=== PATIENT | female | born 1995 | race Caucasian/White ===

== ENCOUNTER 2016-12-10 14:38 | Outpatient (CLI) | payer MEDICAID ==
[~2016-12-10] VITALS: Ht 165.1 cm; Wt 58.8 kg
[2016-12-10 14:44] VITALS: Ht 165.1 cm; Wt 58.8 kg
[2016-12-10 14:45] VITALS: BP 113/68
[2016-12-10] MEDS ORDERED: PREN1TAB17 PO (14:52)
[2016-12-10 16:27] LABS: ADD SCAN DIFF NO
[2016-12-10 16:29] LABS: BASOPHILS % 0.3 % (0.0-2.0); EOSINOPHILS # 0.1 10^3/ul (0.0-0.5); EOSINOPHILS % 1.3 % (0.0-7.0); HEMATOCRIT 32.7 % (37.0-47.0); HEMOGLOBIN 10.9 g/dl (12.0-16.0); LYMPHOCYTES # 1.4 10^3/ul (0.8-2.9); LYMPHOCYTES % 22.2 % (15.0-51.0); MEAN CORPUSCULAR HEMOGLOBIN 31.1 pg (29.0-33.0); MEAN CORPUSCULAR HGB CONC 33.3 g/dl (32.0-37.0); MEAN CORPUSCULAR VOLUME 93.4 fl (82.0-101.0); MEAN PLATELET VOLUME 10.4 fl (7.4-10.4); MONOCYTE # 0.4 10^3/ul (0.3-0.9); NEUTROPHIL # 4.3 10^3/ul (1.6-7.5); NEUTROPHILS % 69.7 % (39.0-77.0); PLATELET COUNT 185 10^3/UL (140-415); RED CELL DISTRIBUTION WIDTH 13.4 % (11.5-14.5); WHITE BLOOD COUNT 6.2 10^3/ul (4.8-10.8)
--- NOTE | 2016-12-10 17:21 | RADRPT ---
PROCEDURE: US evaluation of position. CLINICAL INDICATION: Vaginal bleeding. Uncertain position. TECHNIQUE: Multiple sonographic images of the gravid uterus were obtained utilizing nova-scale socrates ging. Sagittal and transverse images were obtained. The images were reviewed on a PACS workstation . The position was determined. COMPARISON: No prior studies are available for comparison. FINDINGS: There is a single live intrauterine . heart rate is 157 beats per minute. Position is footling breech and placenta is anterior grade 0 with no abruption or previa. There is no placenta previa or abruption. IMPRESSION: 1. position is footling breech. RPTAT: QQ .Otilio Vickers MD, Date Time Electronically viewed and signed by .Otilio Vickers MD, on 12/10/2016 17:21 .R/
--- NOTE | 2016-12-10 18:01 | TRIAGE ---
OB Triage Datetime Report Generated by CPN: 12/10/2016 18:01 Datetime: 12/10/2016 17:30 Stage of : OB Triage Labor Evaluation Frequency: 0 Monitor Mode: External Pattern: Normal: <= 5 Contractions in 10 Minutes Resting Tone Norris: Relaxed Heart Rate FHR Baseline Rate: 145 Monitor Mode: External US Variability: Moderate 6-25 bpm Accelerations: 15X15 Decelerations: None Category: Category I Pain Presence: None/Denies Pain Type: N/A Datetime: 12/10/2016 16:21 Labor Evaluation Frequency: 0 Monitor Mode: External Pattern: Normal: <= 5 Contractions in 10 Minutes Resting Tone Norris: Relaxed Monitor Mode: External US Variability: Moderate 6-25 bpm Accelerations: 15X15 Decelerations: None Category: Category I Pain Presence: None/Denies Pain Type: N/A Vaginal Exam Membrane Status: Intact Datetime: 12/10/2016 15:00 Stage of : OB Triage Assessment Type: Triage Maternal Assessment Level of Consciousness: Fully Conscious DTR's/Clonus: DTRs 2+; No Clonus Headache: Denies Blurred Vision: No Respiratory Effort: Unlabored; Regular Rhythm; Equal Expansion Breath Sounds, Left: Clear and Equal Breath Sounds, Right: Clear and Equal Nausea/Vomiting: Denies RUQ Epigastric Pain: Denies Lower Extremities Edema: None Degree: None Upper Extremities Edema: None Facial Edema: None Temperature Route: Oral Fall Risk Assessment History of Falling: (0) No Secondary Diagnosis: (0) No Ambulatory Aid: (0) Bedrest/Nurse Assist IV Therapy: (0) No Gait: (0) Normal/Bedrest/Immobile Mental Status: (0) Oriented to Own Ability Fall Score: 0 Fall Risk Score Definition: No Risk: No action required Labor Evaluation Frequency: 0 Monitor Mode: External Heart Rate FHR Baseline Rate: 135 Monitor Mode: External US Variability: Moderate 6-25 bpm Accelerations: 15X15 Decelerations: None Category: Category I Pain Assessment Pain Scale: 3 Pain Presence: Intermittent Pain Type: Cramping Pain Location: Abdomen Datetime: 12/10/2016 14:59 Time of Arrival: 12/10/2016 14:29 EGA: 22.5 Arrived By: Ambulatory Arrived From: Home Chief Complaint: C/O SPOTTING ABDOMINAL PAIN Movement: Present Rupture of Membranes: Denies Vaginal Bleeding: Scant Vaginal Discharge: Denies Recent Sexual Intercouse: Denies Abdominal Trauma: Not Applicable Patient Complaints: Cramping Time Provider Notified: 12/10/2016 15:38 Provider Notified: DR. DAY Initial Plan: [id number], CALL
--- NOTE | 2016-12-10 18:22 | CONS ---
Date/Time of Note Date/Time of Note DATE: 12/10/16 TIME: 18:13 Consultation Date/Type/Reason Admit Date/Time December 10, 2016 OB triage consult Reason for Consultation This patient is a a 21 years old 2 para 1 with estimated date of confinement of April 10, 2017, which makes her 22 weeks and 5 days at this time. She came to triage complaining of vaginal spotting and abdominal pain for 2 days On examination her general vital signs are within normal limits with blood pressure of 113/68, pulse rate of 81 respiration 16,, and temperature 98.5. On examination her abdomen is soft we do not feel much of a contraction. heart tone is normal Laboratory Tests Test 12/10/16 15:46 White Blood Count 6.210^3/ul Red Blood Count 3.5010^6/ul Hemoglobin 10.9g/dl Hematocrit 32.7% Mean Corpuscular Volume 93.4fl Mean Corpuscular Hemoglobin 31.1pg Mean Corpuscular Hemoglobin Concent 33.3g/dl Red Cell Distribution Width 13.4% Platelet Count 57020^3/UL Mean Platelet Volume 10.4fl Neutrophils % 69.7% Lymphocytes % 22.2% Monocytes % 6.0% Eosinophils % 1.3% Basophils % 0.3% Neutrophils # 4.310^3/ul Lymphocytes # 1.410^3/ul Monocytes # 0.410^3/ul Eosinophils # 0.110^3/ul Basophils # 0.010^3/ul Nucleated Red Blood Cells # 0.010^3/ul . Constitutional: No chills, No diaphoresis, No disoriented, No febrile, No improved, No no complaints, No other, No poor po, No requiring IVF, No requiring O2 Eyes: No discharge, No no complaints, No other, No pain, No redness, No visual change ENT: No bleeding, No congestion, No discharge, No dysphagia, No no complaints, No other, No pain, No sore throat Respiratory: No cough, No no complaints, No other, No pain, No pleuritic pain, No shortness of breath, No sputum, No wheezing Cardiovascular: No chest pain, No edema, No lightheadedness, No no complaints, No orthopenea, No other, No palpitations, No paroxysmal nocturnal dyspnea Gastrointestinal: other (No abdominal tenderness no CVA 10), No blood, No constipation, No decreased appetite, No diarrhea, No flatus, No nausea, No no complaints, No pain, No passing stool, No vomiting Genitourinary: other (Pelvic exam was not performed due to the fact that she did not have any contractions), No bleeding, No discharge, No dysuria, No flank pain, No hematuria, No no complaints Musculoskeletal: No back pain, No bone/joint pain, No neck pain, No no complaints, No other, No restricted range of motion, No swelling Skin: No bruising, No erythema, No laceration, No no complaints, No other, No pruritis, No rash, No skin lesions Neurologic: No confusion, No dizziness, No focal-weakness, No headache, No no complaints, No other, No seizure, No syncope Endocrine: No dry skin, No no complaints, No other, No polydypsia, No polyuria , No temp intolerance Additional Comments CBC exam was done and showed that she had moderate anemia with hemoglobin of 10.9 hematocrit 32.7 her platelet count was normal 185,000 On ultrasound study the report was a single live intrauterine in footling breech position, placenta was anterior no evidence of abruptio. Disposition. With these finding patient was reassured and was discharged home to be followed in her obstetricians clinic End of dictation Social History Smoking Status: Never smoker Exam/Review of Systems Vital Signs Vitals Vital Signs Date Time Temp Pulse Resp B/P Pulse Ox O2 Delivery O2 Flow Rate FiO2 12/10/16 14:45 98.5 113/68 Room Air Results Result Diagram: 12/10/16 1546 Results 24 hrs Laboratory Tests Test 12/10/16 15:46 White Blood Count 6.2 Red Blood Count 3.50 L Hemoglobin 10.9 L Hematocrit 32.7 L Mean Corpuscular Volume 93.4 Mean Corpuscular Hemoglobin 31.1 Mean Corpuscular Hemoglobin Concent 33.3 Red Cell Distribution Width 13.4 Platelet Count 185 Mean Platelet Volume 10.4 Neutrophils % 69.7 Lymphocytes % 22.2 Monocytes % 6.0 Eosinophils % 1.3 Basophils % 0.3 Neutrophils # 4.3 Lymphocytes # 1.4 Monocytes # 0.4 Eosinophils # 0.1 Basophils # 0.0 Nucleated Red Blood Cells # 0.0 LAURA DAY MD Dec 10, 2016 18:21
== END 2016-12-10 18:05 | disposition home or self-care (01) ==
LOC: EDBD 14:38 → OBT 14:38 → L-D 14:39 → OBT 18:05
DX: O20.8 Other hemorrhage in early pregnancy (principal); Z3A.22 22 weeks gestation of pregnancy
CPT/HCPCS: 76815; 85025; Z7500; G0463

== ENCOUNTER 2017-04-10 01:30 | Inpatient (IN) | payer MEDICAID ==
[~2017-04-10] VITALS: Ht 157.5 cm; Wt 64.8 kg
[~2017-04-10 01:30] MED LIST: PREN1TAB17 PO
[2017-04-10 01:53] VITALS: BP 112/80; PULSE 88; RESP 18
[2017-04-10] MEDS ORDERED: LACTATED RINGER'S 1,000 ML IV SCH (02:32)
--- NOTE | 2017-04-10 02:36 | TRIAGE ---
OB Triage Datetime Report Generated by CPN: 04/10/2017 02:36 Datetime: 04/10/2017 02:30 Stage of : OB Triage Datetime: 04/10/2017 02:10 Stage of : OB Triage Labor Evaluation Frequency: 2-3 Monitor Mode: External Quality: Moderate Pattern: Normal: <= 5 Contractions in 10 Minutes Resting Tone Negley: Relaxed Heart Rate FHR Baseline Rate: 130 Monitor Mode: External US FHR Baseline Changes: No Baseline Change Variability: Moderate 6-25 bpm Accelerations: 15X15 Decelerations: None Category: Category I Vaginal Exam Dilatation (cms): 5.0 Effacement (%): 90 Station: -2 Exam By: Corina Doran Status: Bulging Vaginal Bleeding: Scant Cervix, Consistency: Soft Cervix, Position: Midposition Presentation 'A': Cephalic Datetime: 04/10/2017 01:58 Time of Arrival: 04/10/2017 01:25 EGA: 40.6 Arrived By: Wheelchair Arrived From: Home Chief Complaint: c/o ucs and spotting. States her EDC is 04/10 but 04/04 per PNR Movement: Present Contractions: Irregular Time Contractions Began: 04/09/2017 22:30 Contractions: Q10-15 Rupture of Membranes: Denies Vaginal Bleeding: Scant Vaginal Discharge: Present Recent Sexual Intercouse: Denies Abdominal Trauma: Not Applicable Patient Complaints: Contractions Time Provider Notified: 04/10/2017 02:30 Provider Notified: Dr Muñiz Initial Plan: EFM,SVE Datetime: 04/10/2017 01:38 Stage of : OB Triage Maternal Assessment Level of Consciousness: Fully Conscious Headache: Denies Blurred Vision: No Respiratory Effort: Unlabored Nausea/Vomiting: Denies RUQ Epigastric Pain: Denies Facial Edema: None Labor Evaluation Frequency: placed Monitor Mode: External Resting Tone Negley: Relaxed Monitor Mode: External US Comments: FHT 140 Pain Assessment Pain Scale: 8 Pain Presence: Intermittent Pain Type: Contraction Pain Location: Abdomen Datetime: 12/10/2016 15:00 Fall Risk Assessment Fall Score: 0 Fall Risk Score Definition: No Risk: No action required Datetime: 12/10/2016 14:59 EGA: 23.4
--- NOTE | 2017-04-10 02:51 | HP ---
Date/Time of Note Date/Time of Note DATE: 04/10/17 TIME: 02:50 OB - History Hx of Present : 2 Para: 1 Care: Good Care Obstetrical Complications: None Medical Complications: None Past Family/Social History * Past Medical, Surgical, Family and Obstetric Histories reviewed from chart. OB Admission Exam Vital Signs Vital Signs Vital Signs Date Time Temp Pulse Resp B/P Pulse Ox O2 Delivery O2 Flow Rate FiO2 04/10/17 01:53 98.7 88 18 112/80 Room Air Physical Exam HEENT: WNL Heart: Rhythm Normal Lungs: Clear Abdomen: WNL Extremities: Normal Cervical Dilatation: 5cm Effacement: 100% Station: -2 Membranes: Intact Accelerations: Accelerations Present Decelerations: No Decelerations Varibility: Moderate Contractions on Admission: < 5 Minutes Apart OB Assessment/Plan Reason for admission: active labor Plan: Expectant Management WOODY SANTANA Apr 10, 2017 02:51
[2017-04-10] MEDS ORDERED: LIDOCAINE 1% (MPF) 30 ML INJ INJ PRN (03:00)
[2017-04-10] MEDS ORDERED: IBUPROFEN 600 MG TAB PO PRN (03:00)
[2017-04-10] MEDS ORDERED: MISOPROSTOL 200 MCG TAB PR PRN ×2 (03:00→04:30)
[2017-04-10] MEDS ORDERED: METHYLERGONOVINE 0.2 MG INJ IM PRN ×2 (03:00→04:30)
[2017-04-10] MEDS ORDERED: BUTORPHANOL 2 MG INJ IV PRN (03:00)
[2017-04-10] MEDS ORDERED: CARBOPROST 250 MCG INJ IM PRN ×2 (03:00→04:30)
[2017-04-10] MEDS ORDERED: OXYTOCIN 30 UNITS/LR 500 ML IV PRN ×2 (03:00→04:30)
[2017-04-10 03:17] LABS: BASOPHILS % 0.2 % (0.0-2.0); EOSINOPHILS # 0.1 10^3/ul (0.0-0.5); EOSINOPHILS % 0.7 % (0.0-7.0); HEMATOCRIT 31.6 % (37.0-47.0); HEMOGLOBIN 10.4 g/dl (12.0-16.0); LYMPHOCYTES # 2.3 10^3/ul (0.8-2.9); LYMPHOCYTES % 26.7 % (15.0-51.0); MEAN CORPUSCULAR HEMOGLOBIN 27.8 pg (29.0-33.0); MEAN CORPUSCULAR HGB CONC 32.9 g/dl (32.0-37.0); MEAN CORPUSCULAR VOLUME 84.5 fl (82.0-101.0); MEAN PLATELET VOLUME 12.2 fl (7.4-10.4); MONOCYTE # 0.6 10^3/ul (0.3-0.9); MONOCYTES % 6.5 % (0.0-11.0); NEUTROPHIL # 5.5 10^3/ul (1.6-7.5); NEUTROPHILS % 65.3 % (39.0-77.0); PLATELET COUNT 130 10^3/UL (140-415); RED BLOOD COUNT 3.74 10^6/ul (4.20-5.40); RED CELL DISTRIBUTION WIDTH 13.2 % (11.5-14.5); WHITE BLOOD COUNT 8.5 10^3/ul (4.8-10.8)
[2017-04-10] MEDS ORDERED: LACTATED RINGER'S 1,000 ML IV PRN (03:30)
[2017-04-10 03:33] LABS: INR 0.88; PARTIAL THROMBOPLASTIN TIME 30.7 Sec (25.0-35.0); PROTIME 11.9 Sec (12.2-14.2); PT RATIO 0.9
[2017-04-10] MEDS: OXYTOCIN 30 UNITS/LR 500 ML IV SCH ×8 (04:07→20:08)
[2017-04-10] MEDS ORDERED: LACTATED RINGER'S 1,000 ML IV* SCH (04:08)
--- NOTE | 2017-04-10 04:08 | LDN ---
Date/Time of Note Date/Time of Note DATE: 04/10/17 TIME: 04:04 Delivery Summary Placenta Delivered: Spontaneously Meconium: Light Perineal laceration: 1 Laceration repair: R. labial laceration repaired with 4-0 chromic Anesthesia type: None Estimated blood loss: 350 Sponge & Needle done & correct: Yes All needle counts correct: Yes Any foreign bodies felt in the: No Problems: Delivery Information Sex Infant Sex: female Apgars 1 Minute: 8 5 Minute: 9 Suctioning Nose & mouth suctioned at taz: Yes Umbilical Cord Umbilical cord with: 3 Vessels Cord presentations: nuchal cord Nuchal cord present X: 1 Cord Blood was obtained: Yes Mother & Baby Disposition Disposition Mom & Baby to Maternity; Good: Yes WOODY SANTANA Apr 10, 2017 04:08
[2017-04-10] MEDS ORDERED: LANOLIN 7 GM TUBE TOP PRN (04:30)
[2017-04-10] MEDS ORDERED: HYDROCODONE/APAP (5/325) TAB PO PRN ×2 (04:30)
[2017-04-10] MEDS ORDERED: DIBUCAINE 1% 30 GM OINT PR PRN (04:30)
[2017-04-10] MEDS ORDERED: WITCH HAZEL/GLYCERIN PAD PR PRN (04:30)
[2017-04-10] MEDS ORDERED: BENZOCAINE 20% 56 ML SPRAY TOP PRN (04:30)
[2017-04-10] MEDS ORDERED: CEFAZOLIN 2 GM/50 ML (PMX) 50 ML IVPB ONE (05:00)
[2017-04-10] MEDS: IBUPROFEN 600 MG TAB PO SCH ×3 (06:00→17:10)
[2017-04-10] MEDS ORDERED: FENTAnyl 50 MCG/ML VIAL ONE (06:09)
[2017-04-10] MEDS ORDERED: PROPOFOL 20 ML ONE (06:09)
[2017-04-10] MEDS ORDERED: MIDAZOLAM 1 MG/ML 2 ML INJ ONE (06:09)
--- NOTE | 2017-04-10 06:17 | RADRPT ---
PROCEDURE: US Pelvis. CLINICAL INDICATION: bleeding TECHNIQUE: Multiple sonographic images of the pelvis were obtained utilizing a transabdominal and endovaginal technique. The images were reviewed on a PACS workstation. COMPARISON: 12/10/2016 FINDINGS: The uterus is enlarged and heterogeneous , measuring 19.4 x 10.5 x 11.1 cm. The endometrial echo com plex is thickened, and heterogeneous, measuring 3.9 cm. Mild color flow is demonstrated. There is n o evidence for free fluid. The ovaries are not visualized. No adnexal mass is identified. IMPRESSION: uterus. Heterogeneous, thickened endometrium with color flow suggesting retained products of conception. Follow-up recommended. Ovaries are not visualized. Physician Linda Date Time Electronically viewed and signed by Physician Linda on 04/10/2017 06:17 CS/
[2017-04-10] MEDS ORDERED: ONDANSETRON 4 MG INJ IV PRN (06:30)
[2017-04-10] MEDS ORDERED: FENTAnyl 50 MCG/ML VIAL IV PRN ×3 (06:30)
[2017-04-10] MEDS ORDERED: MEPERIDINE 25 MG INJ IV PRN (06:30)
[2017-04-10] MEDS ORDERED: DIPHENHYDRAMINE 50 MG INJ IV PRN (06:30)
[2017-04-10] MEDS ORDERED: morphine (1 MG/ML) 10ML SYRINGE IV PRN ×3 (06:30)
[2017-04-10] MEDS ORDERED: METOCLOPRAMIDE 10 MG INJ IV PRN (06:30)
[2017-04-10] MEDS ORDERED: OXYCODONE/ACETAMINOPHEN (5/325) TAB PO PRN (06:30)
[2017-04-10] MEDS ORDERED: KETOROLAC 30 MG INJ IV PRN (06:30)
[2017-04-10] MEDS ORDERED: EPHEDrine SULFATE 50 MG/5 ML SYG IV PRN (06:30)
[2017-04-10] MEDS ORDERED: METHYLERGONOVINE 0.2 MG INJ ONE (07:00)
[2017-04-10] MEDS ORDERED: ALBUMIN HUMAN 5% 250 ML ONE ×2 (07:04→07:24)
[2017-04-10] MEDS ORDERED: PHENYLephrine (100 MCG/ML) 5ML SYG ONE (07:06)
[2017-04-10 07:08] LABS: BASOPHILS % 0.1 % (0.0-2.0); EOSINOPHILS % 0.1 % (0.0-7.0); HEMATOCRIT 23.2 % (37.0-47.0); HEMOGLOBIN 7.7 g/dl (12.0-16.0); LYMPHOCYTES # 0.9 10^3/ul (0.8-2.9); LYMPHOCYTES % 8.7 % (15.0-51.0); MEAN CORPUSCULAR HEMOGLOBIN 28.6 pg (29.0-33.0); MEAN CORPUSCULAR HGB CONC 33.2 g/dl (32.0-37.0); MEAN CORPUSCULAR VOLUME 86.2 fl (82.0-101.0); MEAN PLATELET VOLUME 11.5 fl (7.4-10.4); MONOCYTE # 0.6 10^3/ul (0.3-0.9); MONOCYTES % 6.4 % (0.0-11.0); NEUTROPHIL # 8.3 10^3/ul (1.6-7.5); RED BLOOD COUNT 2.69 10^6/ul (4.20-5.40); RED CELL DISTRIBUTION WIDTH 13.2 % (11.5-14.5); WHITE BLOOD COUNT 9.9 10^3/ul (4.8-10.8)
[2017-04-10] MEDS: SOD CHLORIDE 0.9% 1,000 ML IV PRN ×2 (07:15→08:27)
--- NOTE | 2017-04-10 07:28 | OPR ---
Date/Time of Note Date/Time of Note DATE: 04/10/17 TIME: 07:23 Operative Report Preoperative Diagnosis 1. hemorrhage 2. retained POC Postoperative Diagnosis Same, cervical laceration Surgeon see signature line Finance Controller nuclear medicine chief technologist Anesthesia Type: general Estimated Blood Loss: 250 - 300 ml's Transfusion none Specimen Retained POC Grafts/Implants none Complications none Pt Condition Post Procedure: stable Procedure Description Patient was taken to the OR where general anesthesia was administered. She was prepped and draped in the usual sterile fashion in a dorsal lithotomy position in [facility]. A weighted speculum was placed and anterior lip of cervix was grasped with ring forceps. Patient was noted to have long posterior cervical laceration, which was repaired with 3-0 vicryl. Interrupted sutures of 2-0 vicryl placed for hemostasis along repair. Banjo forceps was used to empty uterus with multiple passes. Pieces of retained placenta was removed. Laceration was noted to be hemostatic and minimal bleeding was noted from uterus at conclusion of case. All instruments were removed from the vagina. Sponge, lap, and needle counts were correct. Patient was in stable condition. WOODY SANTANA Apr 10, 2017 07:28
[2017-04-10 07:37] LABS: PLATELET COUNT 103 10^3/UL (140-415); POSITIVE DIFF @See below
[2017-04-10 09:28] LABS: INR 1.16; PROTIME 14.8 Sec (12.2-14.2); PT RATIO 1.2
[2017-04-10 09:29] LABS: PARTIAL THROMBOPLASTIN TIME 35.2 Sec (25.0-35.0)
[2017-04-10 10:15] VITALS: BP 122/78; RESP 18
[2017-04-10 12:45] VITALS: BP 120/76; RESP 18
[2017-04-10 16:55] VITALS: BP 108/76; PULSE 72; RESP 18
[2017-04-11] VITALS: BP 102/60; PULSE 70; RESP 20
[2017-04-11] MEDS: OXYTOCIN 30 UNITS/LR 500 ML IV SCH (00:50)
[2017-04-11] MEDS: IBUPROFEN 600 MG TAB PO SCH ×4 (00:51→18:00)
[2017-04-11 04:00] VITALS: BP 118/52; PULSE 77; RESP 20
[2017-04-11 08:00] VITALS: BP 99/56; PULSE 76; RESP 20
[2017-04-11 09:02] LABS: ABNORMAL IP MESSAGE 1; HEMATOCRIT 18.6 % (37.0-47.0); MEAN CORPUSCULAR HEMOGLOBIN 29.2 pg (29.0-33.0); MEAN CORPUSCULAR HGB CONC 33.9 g/dl (32.0-37.0); MEAN CORPUSCULAR VOLUME 86.1 fl (82.0-101.0); MEAN PLATELET VOLUME 11.6 fl (7.4-10.4); PLATELET COUNT 86 10^3/UL (140-415); RED BLOOD COUNT 2.16 10^6/ul (4.20-5.40); RED CELL DISTRIBUTION WIDTH 13.8 % (11.5-14.5); WHITE BLOOD COUNT 7.7 10^3/ul (4.8-10.8)
[2017-04-11 09:09] LABS: HEMOGLOBIN 6.3 g/dl (12.0-16.0); POSITIVE DIFF @See below
[2017-04-11 09:40] LABS: ANISOCYTOSIS 2+ (0-0); BURR CELLS 1+ (0-0); GIANT THROMBO% (M) 1 % (0-0); MICROCYTOSIS 2+ (0-0); MONOCYTES % (M) 3 % (0-11); OVALOCYTES 1+ (0-0); PLATELET ESTIMATE DECREASED; POIKILOCYTOSIS 1+ (0-0); POLYCHROMASIA 2+ (0-0); TEAR DROP CELLS 1+ (0-0)
--- NOTE | 2017-04-11 11:00 | QN ---
Documentation Comment Post normal vaginal delivery , hemorrhage, required postdelivery D&C , for possible retained placenta. Vital signs are stable her hemoglobin today is 6.3 hematocrit 23.2,, she looks pale but denies lightheadedness her abdomen is soft uterus firm lochia moderate , she is in the process of receiving 2 units of packed cell blood transfusion, ALYSSIA LEON MD Apr 11, 2017 11:00
[2017-04-11 12:20] VITALS: BP 99/63; PULSE 69; RESP 18
[2017-04-11] MEDS ORDERED: INFLUENZA VIRUS VACCINE 0.5 ML SYG IM* ONE (12:30)
[2017-04-11 16:15] VITALS: BP 101/67; PULSE 67; RESP 18
[2017-04-11 17:02] LABS: HEMATOCRIT 26.9 % (37.0-47.0); HEMOGLOBIN 9.1 g/dl (12.0-16.0)
[2017-04-11 20:00] VITALS: BP 118/94; PULSE 80; RESP 18
[2017-04-12 04:00] VITALS: BP 97/68; PULSE 62; RESP 20
[2017-04-12] MEDS: IBUPROFEN 600 MG TAB PO SCH ×3 (05:59→11:54)
[2017-04-12 08:00] VITALS: BP 107/65; PULSE 66; RESP 18
[2017-04-12 08:52] LABS: BASOPHILS % 0.3 % (0.0-2.0); EOSINOPHILS # 0.1 10^3/ul (0.0-0.5); EOSINOPHILS % 0.8 % (0.0-7.0); HEMATOCRIT 24.6 % (37.0-47.0); HEMOGLOBIN 8.3 g/dl (12.0-16.0); LYMPHOCYTES # 1.8 10^3/ul (0.8-2.9); LYMPHOCYTES % 27.6 % (15.0-51.0); MEAN CORPUSCULAR HEMOGLOBIN 28.2 pg (29.0-33.0); MEAN CORPUSCULAR HGB CONC 33.7 g/dl (32.0-37.0); MEAN CORPUSCULAR VOLUME 83.7 fl (82.0-101.0); MONOCYTE # 0.3 10^3/ul (0.3-0.9); MONOCYTES % 4.8 % (0.0-11.0); NEUTROPHIL # 4.2 10^3/ul (1.6-7.5); NEUTROPHILS % 65.7 % (39.0-77.0); PLATELET COUNT 109 10^3/UL (140-415); RED BLOOD COUNT 2.94 10^6/ul (4.20-5.40); RED CELL DISTRIBUTION WIDTH 15.7 % (11.5-14.5); WHITE BLOOD COUNT 6.4 10^3/ul (4.8-10.8)
[2017-04-12] MEDS ORDERED: DIPHTH/TET/ACEL PERTUSS (ADULT) 0.5 ML VIAL IM* ONE (09:00)
[2017-04-12] MEDS ORDERED: MEASLES,MUMPS,RUBELLA VACCINE INJ SC* ONE (09:00)
[2017-04-12] MEDS ORDERED: VARICELLA VACCINE LIVE/PF 1,350 UNIT/0.5 ML ML SC* ONE (09:00)
--- NOTE | 2017-04-12 09:49 | PD.PPDC ---
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
--- NOTE | 2017-04-12 09:51 | DS ---
Date/Time of Note Date/Time of Note DATE: 04/12/17 TIME: 09:50 Discharge Summary Admission/Discharge Info Admit Date/Time Apr 10, 2017 at 02:41 Discharge Date/Time April 12, 2017 at 10 AM Discharge Diagnosis Post normal vaginal delivery day 2 Patient Condition: Good Procedures Normal vaginal delivery Hx of Present Illness Term in labor Hospital Course Satisfactory recovery uneventful Home Meds Discontinued Reported Medications Vit-Iron Fumarate-FA ( Tablet) 1 Each Tablet, 1 TAB PO DAILY, TAB 12/10/16 Follow-up Plan instruction given recommended to make appointment to be seen at the clinic in 2 weeks Primary Care Provider Care Physician No Primary Time spent on discharge: < 30 minutes Pending Labs Laboratory Tests Test 04/11/17 16:15 04/12/17 06:43 04/12/17 08:13 Hemoglobin 9.1g/dl (12.0-16.0) 8.3g/dl (12.0-16.0) Hematocrit 26.9% (37.0-47.0) 24.6% (37.0-47.0) Platelet Count 19415^3/UL (140-415) 54354^3/UL (140-415) Lab Scanned Report BLOOD [id number] White Blood Count 6.410^3/ul (4.8-10.8) Red Blood Count 2.9410^6/ul (4.20-5.40) Mean Corpuscular Volume 83.7fl (82.0-101.0) Mean Corpuscular Hemoglobin 28.2pg (29.0-33.0) Mean Corpuscular Hemoglobin Concent 33.7g/dl (32.0-37.0) Red Cell Distribution Width 15.7% (11.5-14.5) Mean Platelet Volume 11.0fl (7.4-10.4) Neutrophils % 65.7% (39.0-77.0) Lymphocytes % 27.6% (15.0-51.0) Monocytes % 4.8% (0.0-11.0) Eosinophils % 0.8% (0.0-7.0) Basophils % 0.3% (0.0-2.0) Nucleated Red Blood Cells % 0.0/100WBC (0.0-0.0) Neutrophils # 4.210^3/ul (1.6-7.5) Lymphocytes # 1.810^3/ul (0.8-2.9) Monocytes # 0.310^3/ul (0.3-0.9) Eosinophils # 0.110^3/ul (0.0-0.5) Basophils # 0.010^3/ul (0.0-0.1) Nucleated Red Blood Cells # 0.010^3/ul (0.0-0.0) ALYSSIA LEON MD Apr 12, 2017 09:51
[2017-04-12 16:00] VITALS: BP 113/74; PULSE 64; RESP 18
== END 2017-04-12 17:25 | disposition home or self-care (01) | DRG 767 ==
LOC: OBT 01:30 → L-D 01:31 → OBT 02:38 → L-D 02:41 → PP1 10:25
PROVIDERS: ADMIT Obstetrics & Gynecology; ATTEND Obstetrics & Gynecology
PROC: 10E0XZZ Delivery of Products of Conception, External Approach (ICD-10-PCS; principal; 2017-04-10)
PROC: 10D17ZZ Extraction of Products of Conception, Retained, Via Natural or Artificial Opening (ICD-10-PCS; 2017-04-10)
PROC: 0UQC7ZZ Repair Cervix, Via Natural or Artificial Opening (ICD-10-PCS; 2017-04-10)
PROC: 4A1HXCZ Monitoring of Products of Conception, Cardiac Rate, External Approach (ICD-10-PCS; 2017-04-10)
PROC: 0HQ9XZZ Repair Perineum Skin, External Approach (ICD-10-PCS; 2017-04-10)
PROC: 30233N1 Transfusion of Nonautologous Red Blood Cells into Peripheral Vein, Percutaneous Approach (ICD-10-PCS; 2017-04-10)
DX: O48.0 Post-term pregnancy (principal); O71.3 Obstetric laceration of cervix; O72.2 Delayed and secondary postpartum hemorrhage; O70.0 First degree perineal laceration during delivery; Z37.0 Single live birth; Z3A.40 40 weeks gestation of pregnancy
CPT/HCPCS: 36430; 76856; 85014; 85018; 85025; 85049; 85610; 85730; 86592; 86850; 86900; 86901; 86920; 90686; 90715; 90716; G0463; J0690; J2210; J2250; J2370; J2405; J2590; J2765; J3010; J7120; P9016; P9045